=== PATIENT | female | born 1960 | race African-American/Black ===

== ENCOUNTER → 2016-07-04 | Outpatient (CLI) | payer MEDICAID ==
[~2016-07-04] MED LIST: REGADENOSON 0.4 MG/5 ML SYRINGE ONE
== END | disposition home or self-care (01) ==
LOC: CFH 11:57
PROVIDERS: ATTEND Internal Medicine Cardiovascular Disease
DX: R07.89 Other chest pain (principal); R94.31 Abnormal electrocardiogram [ECG] [EKG]; E11.9 Type 2 diabetes mellitus without complications; F17.200 Nicotine dependence, unspecified, uncomplicated
CPT/HCPCS: 78452; 93017; A9502; J2785

== ENCOUNTER 2016-07-27 10:58 | Day surgery (SDC) | payer MEDICAID ==
[2016-07-26 10:28] VITALS: BP 114/71
[2016-07-26 11:19] LABS: BLOOD UREA NITROGEN 17 mg/dL (7-18)
[~2016-07-27] VITALS: Ht 175.3 cm; Wt 87.2 kg
[~2016-07-27 10:58] MED LIST changes: +ATOR20TA9 PO; +HYDR25TA6 PO; +LISI-170 PO; +METF10002 PO; +PROP10TA PO; -REGADENOSON 0.4 MG/5 ML SYRINGE ONE
[2016-07-27] MEDS ORDERED: SODIUM CHLORIDE 0.9% 1,000 ML IV SCH (11:12)
[2016-07-27] MEDS ORDERED: ASPIRIN 325 MG TABLET EC PO ONE (11:30)
[2016-07-27] MEDS ORDERED: ASPIRIN 325 MG TABLET EC ONE ×2 (11:35→11:37)
[2016-07-27] MEDS ORDERED: FENTANYL PF 100 MCG/2ML ONE (12:42)
[2016-07-27] MEDS ORDERED: MIDAZOLAM 1 MG/ML, 5ML ONE (12:42)
[2016-07-27] MEDS ORDERED: BIVALIRUDIN 250 MG ONE (12:42)
[2016-07-27] MEDS ORDERED: VERAPAMIL 2.5 MG/ML, 2ML ONE (12:42)
[2016-07-27] MEDS ORDERED: NITROGLYCERIN 5 MG/ML, 10ML ONE (12:42)
[2016-07-27] MEDS ORDERED: TICAGRELOR 90 MG TABLET ONE (12:42)
[2016-07-27] MEDS ORDERED: HEPARIN 1,000 UNITS/ML, 10ML ONE (12:42)
[2016-07-27] MEDS ORDERED: LIDOCAINE 2%, 20ML ONE (12:43)
[2016-07-27] MEDS ORDERED: ACETAMINOPHEN 325 MG TABLET PO PRN (13:30)
== END 2016-07-27 15:52 | disposition home or self-care (01) ==
LOC: CACL 10:58
PROVIDERS: ATTEND Internal Medicine Cardiovascular Disease
DX: I20.0 Unstable angina (principal); I10 Essential (primary) hypertension; E11.9 Type 2 diabetes mellitus without complications; F17.210 Nicotine dependence, cigarettes, uncomplicated; Z79.01 Long term (current) use of anticoagulants
CPT/HCPCS: 36415; 71020; 80048; 85025; 85610; 85730; 93458; C1894; J1644; J2250; J3010; J3490; Q9967; J0583

== ENCOUNTER → 2019-05-22 | Outpatient (CLI) | payer BC ==
[~2019-05-22] MED LIST changes: +ATOR20TA37 PO; -ATOR20TA9 PO; +CYCL-259 PO; +IBUP-1623 PO; +LEVO25TA4 PO; +METF500T17 PO; -PROP10TA PO; +PROP10TA16 PO
[2019-05-22 11:21] LABS: BASOPHILS # (AUTO) 0.01 x10^3/uL (0-0.1); BASOPHILS % (AUTO) 0 % (0-1); EOSINOPHILS # (AUTO) 0.15 x10^3/uL (0-0.4); EOSINOPHILS % (AUTO) 2 % (1-7); LYMPHOCYTES # (AUTO) 2.32 x10^3/uL (1-3.4); LYMPHOCYTES % (AUTO) 36 % (22-44); MD NO; MEAN CORPUSCULAR HEMOGLOBIN 31.7 pg (27.0-34.8); MEAN CORPUSCULAR HGB CONC 33.8 g/dL (32.4-35.8); MEAN CORPUSCULAR VOLUME 93.7 fL (80-100); MEAN PLATELET VOLUME 7.6 fL (7.4-10.4); MONOCYTES # (AUTO) 0.43 x10^3/uL (0.2-0.8); MONOCYTES % (AUTO) 7 % (2-9); NEUTROPHILS # (AUTO) 3.47 x10^3/uL (1.8-6.8); NEUTROPHILS % (AUTO) 55 % (42-75); PLATELET COUNT 268 x10^3/uL (130-400); RED BLOOD COUNT 4.41 x10^6/uL (3.82-5.3); RED CELL DISTRIBUTION WIDTH 13.2 % (9.6-15.2)
[2019-05-22 11:32] LABS: ALANINE AMINOTRANSFERASE 25 U/L (12-78); ALBUMIN 3.4 g/dL (3.4-5.0); ANION GAP 3 mmol/L (5-15); CALCIUM 8.6 mg/dL (8.5-10.1); CHLORIDE 113 mmol/L (98-107); CREATININE 0.99 mg/dL (0.55-1.02)
[2019-05-22 11:34] LABS: ALKALINE PHOSPHATASE 99 U/L (45-117); BILIRUBIN,TOTAL 0.2 mg/dL (0.2-1.0); TOTAL PROTEIN 7.6 g/dL (6.4-8.2)
== END | disposition home or self-care (01) ==
LOC: STAR 09:54
PROVIDERS: ATTEND Surgery
DX: I44.0 Atrioventricular block, first degree (principal); I44.4 Left anterior fascicular block; D48.62 Neoplasm of uncertain behavior of left breast
CPT/HCPCS: 36415; 80053; 85025; 93005